=== PATIENT | female | born 1975 | race Caucasian/White ===

== ENCOUNTER 2019-03-30 07:08 | Emergency (ER) | payer MEDICAID, OTHER ==
[~2019-03-30] VITALS: Ht 172.7 cm; Wt 64.0 kg
[2019-03-30 08:52] VITALS: BP 117/71
== END 2019-03-30 08:52 | disposition home or self-care (01) ==
LOC: ER 07:08
DX: Z76.89 Persons encountering health services in other specified circumstances (principal)
CPT/HCPCS: 36415; 81025; 84702; 99283